=== PATIENT | male | born 1935 | race Hispanic/Latino ===

== ENCOUNTER 2023-04-25 10:03 | Day surgery (SDC) | payer OTHER ==
[2023-04-25] VITALS (10 sets, daily range): BP systolic 131–161; BP diastolic 51–72; PULSE 54–64; RESP 16
[~2023-04-25] VITALS: Ht 177.8 cm; Wt 85.7 kg
[~2023-04-25 10:03] MED LIST: METF-445 PO; SIMV10TA97 PO; TAMS0.4C32 PO; TERA10CA4 PO
[2023-04-25] MEDS ORDERED: 0.9%NACL 1000ML 1,000 ML IV ONE (10:50)
[2023-04-25] MEDS ORDERED: folic acid PO (11:15)
[2023-04-25] MEDS ORDERED: CYAN-35 PO (11:15)
[2023-04-25] MEDS ORDERED: CALC-898 PO (11:15)
[2023-04-25] MEDS ORDERED: glargine SQ (11:15)
[2023-04-25 11:53] LABS: CREATININE 1.3 mg/dL (0.5-1.5); POTASSIUM 3.8 mmol/L (3.5-5.1)
[2023-04-25] MEDS ORDERED: LIDOCAINE PF 100MG/5ML (2%) SYRINGE 5ML ONE (13:21)
[2023-04-25] MEDS ORDERED: PROPOFOL 10 MG/ML 20ML VIAL IV ONE (13:21)
== END 2023-04-25 15:05 | disposition home or self-care (01) ==
LOC: DAH 10:03 → ENDO 10:03
PROVIDERS: ATTEND Internal Medicine Gastroenterology
DX: D50.9 Iron deficiency anemia, unspecified (principal); Z20.822 Contact with and (suspected) exposure to COVID-19; K92.1 Melena; K59.04 Chronic idiopathic constipation; R10.13 Epigastric pain; R13.10 Dysphagia, unspecified; K21.9 Gastro-esophageal reflux disease without esophagitis; K44.9 Diaphragmatic hernia without obstruction or gangrene; K29.70 Gastritis, unspecified, without bleeding; K80.20 Calculus of gallbladder without cholecystitis without obstruction; I10 Essential (primary) hypertension; E11.9 Type 2 diabetes mellitus without complications; E78.5 Hyperlipidemia, unspecified; Z98.890 Other specified postprocedural states; Z98.49 Cataract extraction status, unspecified eye
CPT/HCPCS: 45330; 43239; 80048; 82948; 36415; J7030; J2001; J2704; A4620; A4215 ×2; A4223; A4222; A4221; A4663; A4606; 45378; J3490